=== PATIENT | female | born 1930 | race Caucasian/White ===

== ENCOUNTER 2016-12-10 16:11 | Emergency (ER) | payer OTHER ==
[~2016-12-10] VITALS: Ht 149.9 cm; Wt 45.4 kg
--- NOTE | ~2016-12-10 | EKG ---
[place] [address] [place] [address] ELECTROCARDIOGRAM REPORT Name: SEGUNDO SCHWARTZ I Room #: DEP Wm#: [id number] Admission: 12/10/16 Attend Phys: Discharge: 12/10/16 Date of : 34 Report #: [id number] THIS REPORT FOR: //name// [facility] ED Test Date: 2016-12-10 Test Time: 18:47:35 Pat Name: SEGUNDO SCHWARTZ Department: Room: Gender: F Student Services Director: lake : 1930 Requested By: Jimbo Acosta Order Number: [id number] MD: Leroy Candelario Measurements Intervals [place] Rate: 67 P: 30 IA: 254 QRS: -3 QRSD: 134 T: 55 QT: 400 QTc: 423 Interpretive Statements Sinus rhythm Atrial premature complex Prolonged IA interval Right bundle branch block Compared to ECG 10/29/2016 07:12:10 Atrial premature complex(es) now present Electronically Signed On 12-11-2016 8:27:31 CDT by Leroy Candelario [email or web address] <ELECTRONICALLY SIGNED> By: Leroy Candelario MD, [facility] 12/11/16 0827 46 46 Leroy Candelario MD, [facility] /EPI
[~2016-12-10 16:11] MED LIST: ADALAT CC60 MG PO; ADULT LOW DOSE81 MG PO; AFEDITAB CR30 MG PO; AMLODIPINE BESYL5 MG; AMLODIPINE BESYL5 MG PO; ASPIRIN EC81 M1; AUGMENTIN 875875 MG PO; AZITHROMYCIN PO; BACTRIM DS TAB1 EACH PO; CARVEDILOL25 MG PO; CIPRO250 M1 PO; CIPROFLOXACIN500 M1 PO; CLONIDINE HCL0.2 M2 PO; CLONIDINE HCL0.3 M2; DEMADEX20 MG PO; DIOVAN320 MG PO; FERREX 150 PLU1 EAC1 PO; FUROSEMIDE 40 M40 M1 PO; HYDRALAZINE 2525 MG PO; IRON325 PO; JANUVIA100 MG PO; KEFLEX250 MG PO; KEFLEX500 MG PO; LANTUS SUBQ; LASIX 20 MG TAB20 MG PO; LIPITOR40 MG PO; NEXIUM40 MG PO; NORCO 5-325 TA1 EACH PO; NORVASC5 MG PO; ONGLYZA2.5 MG PO; PERCOCET 5-3251 EACH PO; PHOSLO667 M1 PO; TRADJENTA5 MG PO; VICODIN 5-5001 EACH PO; VITAMIN D1000 UNI1 PO; ZOFRAN ODT4 MG PO; [UNRECOGNIZED DRUG - OTHER] PO; [UNRECOGNIZED DRUG - REMARK]
[2016-12-10] MEDS ORDERED: RENVELA800 MG PO (17:18)
[2016-12-10 19:14] LABS: HEMATOCRIT 37.1 % (37.0-47.0); HEMOGLOBIN 12.5 gm/dL (12.0-15.0); MCH 31.9 pg (26.0-34.0); MCHC 33.8 g/dL (28.0-37.0); MCV 94.3 fL (80.0-100.0); PLATELET COUNT 188 thou/uL (150-400); RBC 3.93 mil/uL (4.20-5.00); RDW 14.4 % (10.5-14.5); WBC 11.5 thou/uL (4.0-11.0)
[2016-12-10 19:15] LABS: MANUAL DIFF YES
[2016-12-10 19:18] LABS: CALCIUM 8.7 mg/dL (8.5-10.1); CREATININE 4.1 mg/dL (0.6-1.3); POTASSIUM 5.7 mmol/L (3.5-5.1)
[2016-12-10 19:22] LABS: APTT 22.9 Seconds (24.5-32.8); INR 1.1; PROTIME 11.1 Seconds (9.3-11.4)
[2016-12-10 19:23] LABS: ALBUMIN 3.2 g/dL (3.4-5.0); TOTAL BILIRUBIN 0.4 mg/dL (<0.1-1.0); TOTAL PROTEIN 6.2 g/dL (6.4-8.2)
[2016-12-10 20:49] LABS: ABSOLUTE NEUTROPHILS 8.4 thou/uL (1.4-8.2); ANISOCYTOSIS 1+; TOTAL CELL COUNT 100
== END 2016-12-10 21:16 | disposition short-term general hospital (02) ==
LOC: ER 16:11
PROVIDERS: Emergency Medicine
DX: S06.5X0A Traumatic subdural hemorrhage without loss of consciousness, initial encounter (principal); I13.2 Hypertensive heart and chronic kidney disease with heart failure and with stage 5 chronic kidney disease, or end stage renal disease; E11.22 Type 2 diabetes mellitus with diabetic chronic kidney disease; N18.6 End stage renal disease; I50.30 Unspecified diastolic (congestive) heart failure; Z99.2 Dependence on renal dialysis; G56.01 Carpal tunnel syndrome, right upper limb; K21.9 Gastro-esophageal reflux disease without esophagitis; E78.5 Hyperlipidemia, unspecified; Z90.89 Acquired absence of other organs; Z90.49 Acquired absence of other specified parts of digestive tract; Z88.5 Allergy status to narcotic agent; Z88.0 Allergy status to penicillin; W18.30XA Fall on same level, unspecified, initial encounter; Y93.89 Activity, other specified; Y92.010 Kitchen of single-family (private) house as the place of occurrence of the external cause; Y99.9 Unspecified external cause status

== ENCOUNTER 2017-01-06 16:21 | Inpatient (IN) | payer OTHER ==
[~2017-01-06] VITALS: Ht 149.9 cm; Wt 45.4 kg
--- NOTE | ~2017-01-06 | 2DMMODE ---
[facility] [address] [place] [address] 2 D/M-MODE ECHOCARDIOGRAM Name: SEGUNDO SCHWARTZ I Room #: 458-P ADM IN M.R.#: [id number] Admission: 01/06/17 Attend Phys: Theresa Fields Discharge: Date of : 34 Date of Service: 01/07/17 1432 Report #: [id number] THIS REPORT FOR: //name// APPROVED REPORT Study performed: 01/07/2017 11:28:28 EXAM: Comprehensive 2D, Doppler, and color-flow Echocardiogram Patient Location: Echo lab Room #: [facility] Blood Pressure: 96/36 mmHg HR: 53 bpm Rhythm: NSR Other Information Study Quality: Good Indications Elevated Troponin Hx: CHF, HTN,HLP,DM 2D Dimensions RVDd: 36.18 mm LVEF(%): 56.56 (>50%) IVSd: 13.24 (7-11mm) LVOT Diam: 19.25 (18-24mm) LVDd: 38.56 mm PWd: 13.08 (7-11mm) LVDs: 27.35 (25-40mm) Aortic Root: 30.70 mm Arellano's LVEF: 56.56 % Volumes Left Atrial Volume (Systole) Single Plane 4CH: 73.86 mL Single Plane 2CH: 62.24 mL LA ESV Index: 53.00 mL/m2 Aortic Valve AoV Peak Jameson.: 1.42 m/s AO Peak Gr.: 8.12 mmHg LV Max P.46 mmHg LV Max: 0.93 m/s Mitral Valve E/A Ratio: 1.1 MV Decel. Time: 260.44 ms [facility] [address] [place] [address] 2 D/M-MODE ECHOCARDIOGRAM Name: SEGUNDO SCHWARTZ I Room #: 458-P [facility]#: [id number] Admission: 01/06/17 Attend Phys: Theresa Fields Discharge: Date of : 34 Date of Service: 01/07/17 1432 Report #: [id number] MV E Max Jameson.: 1.00 m/s MV A Jameson.: 0.92 m/s MV PHT: 75.53 ms Pulmonary Valve PV Peak Jameson.: 1.11 m/s PV Peak Gr.: 4.94 mmHg Pulmonary Vein P Vein S: 37.3 m/s P Vein D: 42.1 m/s Tricuspid Valve TR Peak Jameson.: 2.06 m/s RAP Estimate: 5.00 mmHg TR Peak Gr.: 17.03 mmHg RVSP: 22.00 mmHg Left Ventricle The left ventricle is normal size. There is normal LV segmental wall motion. Mild concentric left ventricular hypertrophy. Left ventricular systolic function is normal. LVEF is 60-65%. Grade II - pseudonormal filling dynamics. Right Ventricle The right ventricle is normal size. The right ventricular systolic function is normal. Atria Left atrium is dilated. The right atrium size is normal. Aortic Valve Aortic valve is mildl calcified. Trace aortic regurgitation. There is no aortic valvular stenosis. Mitral Valve Mitral valve leaflets are mildly thickened. Mild mitral annular calcification. Mild to moderate mitral regurgitation. Tricuspid Valve The tricuspid valve is normal in structure. There is trace to mild tricuspid regurgitation. The right atrial pressure is estimated at 5 mmHg. Estimated PAP is 22mmHg. Pulmonic Valve The pulmonary valve is normal in structure. Trace pulmonic regurgitation. [employer] [facility] [address] [place] [address] 2 D/M-MODE ECHOCARDIOGRAM Name: SEGUNDO SCHWARTZ I Room #: 458-P [facility] IN M.R.#: [id number] Admission: 01/06/17 Attend Phys: Theresa Fields Discharge: Date of : 34 Date of Service: 01/07/17 1432 Report #: [id number] The aortic root is normal in size. Ascending aorta is not well visualized. IVC is normal in size and collapses >50% with inspiration. Pericardium A small ericardial effusion is present. <Conclusion> Left ventricular systolic function is normal. There is normal LV segmental wall motion. LVEF 60-65%. Grade II - pseudonormal filling dynamics. Left atrium is dilated. Aortic valve is mildl calcified, no aortic insuffiiciency or stenosis. Mitral valve leaflets are mildly thickened. Mild mitral annular calcification. There is trace to mild tricuspid regurgitation. The right atrial pressure is estimated at 5 mmHg. Estimated PAP is 22mmHg. A small pericardial effusion is present. <ELECTRONICALLY SIGNED> By: Leroy Candelario MD, [facility] 01/07/17 1432 1432 143 Leroy Candelario MD, [facility] /INF
--- NOTE | ~2017-01-06 | EKG ---
[address] [place] [address] ELECTROCARDIOGRAM REPORT Name: SEGUNDO SCHWARTZ I Room #: 458-P ADM IN M.R.#: [id number] Admission: 01/06/17 Attend Phys: Theresa Fields MD Discharge: Date of : 32 Report #: [id number] THIS REPORT FOR: //name// [facility] ED Test Date: 2017-01-06 Test Time: 17:10:23 Pat Name: SEGUNDO SCHWARTZ Department: Room: [facility] Gender: F Top Flavor Attendant: wale handley : 1930 Requested By: Manuela Friend Order Number: [id number] MD: Leroy Candelario Measurements Intervals [place] Rate: 76 P: 25 IN: 223 QRS: -15 QRSD: 139 T: 46 QT: 457 QTc: 514 Interpretive Statements Sinus rhythm Borderline prolonged IN interval Right bundle branch block Compared to ECG 12/10/2016 18:47:35 Atrial premature complex(es) no longer present Electronically Signed On 01-07-2017 9:23:06 CDT by Leroy Candelario [email or web address] <ELECTRONICALLY SIGNED> By: Leroy Candelario MD, [facility] 01/07/17 0923 1710 1710 Leroy Candelario MD, [facility] /EPI
--- NOTE | ~2017-01-06 | HC ---
[facility] [place] [address] CONSULTATION Name: SEGUNDO SCHWARTZ I Room #: 458-P [facility] IN M.R.#: [id number] Admission: 01/06/17 Attend Phys: Theresa Fields MD Discharge: 01/07/17 Date of : 32 Report #: [id number] THIS REPORT FOR: //name// CC: Robin Fields DATE OF SERVICE: 01/07/2017 INDICATION: Positive troponin. HISTORY OF PRESENT ILLNESS: This is a pleasant 86-year-old female who presented to [facility] with hypertension, weakness, and vomiting. She had completed dialysis yesterday morning and developed vomiting on the way home. She was found to have systolic blood pressure greater than 200 and brought to the ER for an evaluation. The patient had at least 4-5 episodes of vomiting. Presently, she denies having any episodes of chest pains or shortness of breath. Recently, she fell and apparently had a cerebral hemorrhage several weeks ago, admitted to [facility]. They report that surgery was not indicated and she has already followed up as an outpatient with a repeat CT of the head. PAST MEDICAL HISTORY: End-stage renal disease, on dialysis; hypertension and hypercholesterolemia. Recent admission for junctional rhythm associated with hyperkalemia. Echo from October 2016, reveals normal LV systolic function. ALLERGIES: CODEINE and PENICILLIN. MEDICATIONS: Include Januvia 100 mg daily, Lexapro, Procardia XL 30 mg daily, omeprazole once a day, atorvastatin 40 mg daily, aspirin 81 mg, Coreg 25 mg twice a day, and Demadex 20 mg daily. SOCIAL HISTORY: Negative for tobacco use. FAMILY HISTORY: Negative for premature CAD. REVIEW OF SYSTEMS: A full 10-point review of systems performed. Only the pertinent positives and negatives are described in the HPI. PHYSICAL EXAMINATION: VITAL SIGNS: Blood pressure is 150/80, heart rate is 76 beats per minute. GENERAL APPEARANCE: This is an elderly appearing female, in no acute respiratory distress. HEAD AND EYES: Normocephalic. Sclerae are anicteric. ENT: Oral mucosa moist. NECK: Supple. LUNGS: Clear to auscultation. [facility] [address] [place] [address] CONSULTATION Name: SEGUNDO SCHWARTZ I Room #: 458-P [facility] IN .R.#: [id number] Admission: 01/06/17 Attend Phys: Theresa Fields MD Discharge: 01/07/17 Date of : 32 Report #: [id number] CARDIAC: Regular rate and rhythm, S1, S2 positive. ABDOMEN: Soft. EXTREMITIES: No major joint deformities. No edema. ECG reveals sinus rhythm, right bundle branch block. LABORATORY VALUES: Peak troponin is 0.55. White count is 11.8 and hemoglobin is 12.4. Sodium is 133, BUN is 36, and creatinine is 3.6. ASSESSMENT AND PLAN: 1. Minimal troponin elevation of 0.55. Clinically stable with no symptoms of chest pains or shortness of breath. The significance is unclear with a history of renal disease. We will repeat an echo at this time. The plan is to continue with medical therapy. A low dose aspirin is indicated, if okay with neurology given her recent history of cerebral hemorrhage. 2. Hypertension, continue with medications. 3. End-stage renal disease, as per nephrology. 4. Hypercholesterolemia, continue with statin. 5. Cerebral hemorrhage, consider a neuro evaluation. Thank you for allowing me to participate in the care of your patient. <ELECTRONICALLY SIGNED> By: Mikey Syed MD 01/08/17 0804 0934 1250 Mikey Syed MD /nt
--- NOTE | ~2017-01-06 | HC ---
[facility] [address] [facility] [place] [address] CONSULTATION Name: SEGUNDO SCHWARTZ I Room #: 458-P [place] IN M.R.#: [id number] Admission: 01/06/17 Attend Phys: Theresa Fields MD Discharge: 01/07/17 Date of : 32 Report #: [id number] THIS REPORT FOR: //name// CC: Robin Fields REASON FOR PRESENTATION: Elevated blood pressure. REASON FOR CONSULTATION: End-stage renal disease. HISTORY OF PRESENT ILLNESS: This is a very well known patient to me. She is an 86-year-old with extensive past medical history including end-stage renal disease, maintained on dialysis every Thursday, Thursday and Thursday. His end-stage renal disease is due to diabetes mellitus and hypertension. She presented to the hospital after her had some difficulties with her blood pressure control. She had some weakness, no nausea or vomiting, no headache, no dizziness, no other symptoms to suggest an acute neurological event related to her blood pressure. Her talked with the people at the [facility] and she was asked to come to the emergency room for further evaluation where she was found to have an elevated blood pressure with systolic blood pressure of 200. She was admitted for further evaluation and management and I was consulted to manage her end-stage renal disease. PAST MEDICAL HISTORY: Numerous and extensive medical problems including the followin. End-stage renal disease. 2. Diabetes mellitus. 3. Hypertension. 4. Hyperlipidemia. 5. Status post tonsillectomy. 6. Appendectomy. 7. Colonoscopy. 8. Hysterectomy. 9. Status post left-sided AV fistula. 10. Benign brain tumor removed. 11. Carpal tunnel release. MEDICATIONS: 1. Sitagliptin: 2. Nifedipine. 3. Folic acid. 4. Sevelamer. 5. Carvedilol. 6. Aspirin. 7. Atorvastatin. FAMILY HISTORY: Significant for diabetes mellitus. [facility] [address] [place] [address] CONSULTATION Name: SEGUNDO SCHWARTZ I Room #: 458-P [place] IN [facility].#: [id number] Admission: 01/06/17 Attend Phys: Theresa Fields MD Discharge: 01/07/17 Date of : 32 Report #: [id number] ALLERGIES: PENICILLIN and CODEINE. SOCIAL HISTORY: She lives at the [facility]. No drug or alcohol abuse. REVIEW OF SYSTEMS: GENERAL: No fever or chills. CARDIOVASCULAR: No chest pain or palpitation. PULMONARY: No cough or hemoptysis. GASTROINTESTINAL: No nausea or vomiting. NEUROLOGICAL: Significant for weakness, but no headache, no dizziness. PHYSICAL EXAMINATION: GENERAL: She is alert, oriented, in no apparent distress. VITAL SIGNS: Temperature 36.9, blood pressure 148/57. HEAD AND NECK: No jugular venous distention, no bruit, no thyromegaly. CHEST: Clear to auscultation bilaterally. CARDIOVASCULAR: Regular with no rub detected. ABDOMEN: Soft, nontender with no hepatosplenomegaly. LOWER EXTREMITIES: No edema with intact peripheral pulses. LABORATORY DATA: Laboratory values reviewed. Hemoglobin 12.4. Chemistry showed hyponatremia. Troponins were mildly elevated. UA with some white blood cell clumps. Urine culture is still pending. ASSESSMENT, IMPRESSION AND PLAN: 1. End-stage renal disease. 2. Hypertension, out of control. 3. Diabetes mellitus. 4. Dialysis as usual every Thursday, and Thursday. 5. Replace potassium. 6. Cultures of the urine are still pending. 7. Stable from my side with acceptable blood pressure reading, okay to go home. After we get the cultures, to decide whether to treat her for a possibility . <ELECTRONICALLY SIGNED> By: Karina Howard MD 01/09/17 0921 0752 1153 Karina Howard MD /nt
[~2017-01-06 16:21] MED LIST changes: +RENVELA800 MG PO
[2017-01-06 16:43] VITALS: BP 201/59
[2017-01-06] MEDS ORDERED: OMEPRAZOLE40 MG PO (16:46)
[2017-01-06] MEDS ORDERED: PROCARDIA XL30 MG PO (16:46)
[2017-01-06] MEDS ORDERED: LEXAPRO 10 MG T10 M1 PO (16:46)
[2017-01-06] MEDS ORDERED: RENAGEL800 MG PO (16:47)
[2017-01-06 17:46] LABS: HEMATOCRIT 36.6 % (37.0-47.0); HEMOGLOBIN 12.4 gm/dL (12.0-15.0); MCH 30.9 pg (26.0-34.0); MCHC 33.9 g/dL (28.0-37.0); MCV 91.2 fL (80.0-100.0); PLATELET COUNT 219 thou/uL (150-400); RBC 4.01 mil/uL (4.20-5.00); RDW 13.1 % (10.5-14.5); WBC 11.8 thou/uL (4.0-11.0)
[2017-01-06 17:48] LABS: MANUAL DIFF YES
[2017-01-06 18:00] LABS: CALCIUM 8.7 mg/dL (8.5-10.1); CREATININE 2.8 mg/dL (0.6-1.0); POTASSIUM 3.5 mmol/L (3.5-5.1)
[2017-01-06 18:13] LABS: MAGNESIUM 1.6 mg/dL (1.8-2.4); TROPONIN-I 0.15 ng/mL (<0.04-0.07)
[2017-01-06 18:22] LABS: ICTOTEST (BILI CONFIRMATORY) Positive (Negative); URINE COLOR BROWN; URINE PROTEIN (DIPSTICK) ND (Negative); URINE SPECIFIC GRAVITY ND (1.003-1.035)
[2017-01-06 18:23] LABS: URINE BILIRUBIN ND (Negative); URINE BLOOD ND (Negative); URINE LEUKOCYTES-REFLEX ND (Negative); URINE UROBILINOGEN ND E.U./dl (0.2-1.0)
[2017-01-06 18:27] LABS: SSA (PROTEIN CONFIRMATORY) 4+ (APPROX. >= 500) mg/dL (Negative); URINE GLUCOSE-RANDOM* ND (Negative); URINE KETONES ND (Negative)
[2017-01-06 18:29] LABS: SQUAMOUS >10 Many /LPF (0-3)
[2017-01-06 18:31] LABS: WBC CLUMPS Occasional (None Seen)
[2017-01-06 18:32] LABS: COARSE GRANULAR CASTS 0-3 Few /LPF (None Seen); CRYSTALS None Seen /LPF (None Seen)
[2017-01-06 18:33] LABS: URINE RBC 0-2 Rare /HPF (0-2)
[2017-01-06 18:59] LABS: ABSOLUTE NEUTROPHILS 11.1 thou/uL (1.4-8.2); TOTAL CELL COUNT 100
[2017-01-06 19:56] VITALS: BP 156/66
[2017-01-06 20:15] VITALS: BP 175/47
[2017-01-06 21:00] VITALS: BP 161/48
[2017-01-06] MEDS ORDERED: LIDOCREAM5 GM TOP (21:16)
[2017-01-06] MEDS ORDERED: RENA-VITE TABL0.8 MG PO (21:21)
[2017-01-06] MEDS ORDERED: SENNA8.6 MG PO (21:22)
[2017-01-06] MEDS ORDERED: ACETAMINOPHEN325 M1 PO (21:23)
[2017-01-06] MEDS ORDERED: MIRALAX17 GM PO (21:24)
[2017-01-06 23:55] VITALS: BP 147/53
[2017-01-07 04:00] VITALS: BP 150/49
[2017-01-07 06:24] LABS: ALBUMIN 2.8 g/dL (3.4-5.0); ANION GAP 10 mmol/L (7-16); BUN 36 mg/dL (7-18); CALCIUM 8.5 mg/dL (8.5-10.1); CHLORIDE 95 mmol/L (98-107); CHOLESTEROL 128 mg/dL (<200); CO2 28 mmol/L (21-32); CREATININE 3.6 mg/dL (0.6-1.0); GLUCOSE 100 mg/dL (74-106); HDL CHOLESTEROL 68 mg/dL (>40); LDL CHOLESTEROL 42 mg/dL (<100); MAGNESIUM 2.3 mg/dL (1.8-2.4); PHOSPHORUS 2.5 mg/dL (2.5-4.9); POTASSIUM 3.3 mmol/L (3.5-5.1); SODIUM 133 mmol/L (136-145); TC:HDL 1.9 Ratio (Not establshd); TRIGLYCERIDE 94 mg/dL (<150); VLDL 19 mg/dL (<40)
[2017-01-07 07:47] VITALS: BP 148/57
[2017-01-07 11:29] VITALS: BP 96/36
[2017-01-07 15:16] VITALS: BP 96/36
== END 2017-01-07 16:51 | disposition home or self-care (01) | DRG 304 ==
LOC: ER 16:21 → EROBS 19:31 → 4W 19:31
PROVIDERS: Emergency Medicine; Nurse Practitioner
DX: I16.0 Hypertensive urgency (principal); N18.6 End stage renal disease; E43 Unspecified severe protein-calorie malnutrition; I16.1 Hypertensive emergency; N12 Tubulo-interstitial nephritis, not specified as acute or chronic; I13.2 Hypertensive heart and chronic kidney disease with heart failure and with stage 5 chronic kidney disease, or end stage renal disease; E11.22 Type 2 diabetes mellitus with diabetic chronic kidney disease; I45.10 Unspecified right bundle-branch block; E78.00 Pure hypercholesterolemia, unspecified; I50.9 Heart failure, unspecified; E78.5 Hyperlipidemia, unspecified; E83.42 Hypomagnesemia; Z88.6 Allergy status to analgesic agent; Z88.0 Allergy status to penicillin; Z90.710 Acquired absence of both cervix and uterus; Z99.2 Dependence on renal dialysis; Z82.49 Family history of ischemic heart disease and other diseases of the circulatory system; Z83.3 Family history of diabetes mellitus; Z87.891 Personal history of nicotine dependence
CPT/HCPCS: 10045

== ENCOUNTER → 2017-02-09 | Outpatient (CLI) | payer OTHER ==
[~2017-02-09] MED LIST changes: +ACETAMINOPHEN325 M1 PO; +LEXAPRO 10 MG T10 M1 PO; +LIDOCREAM5 GM TOP; +MIRALAX17 GM PO; +OMEPRAZOLE40 MG PO; +PROCARDIA XL30 MG PO; +RENA-VITE TABL0.8 MG PO; +RENAGEL800 MG PO; +SENNA8.6 MG PO
== END ==
LOC: NUC 11:14
DX: I10 Essential (primary) hypertension (principal)

== ENCOUNTER 2017-06-03 17:09 | Emergency (ER) | payer OTHER ==
[~2017-06-03] VITALS: Ht 147.3 cm; Wt 48.5 kg
[2017-06-03] MEDS ORDERED: ULTRAM 50MG TAB50 MG PO (19:01)
== END 2017-06-03 19:12 | disposition home or self-care (01) ==
LOC: ER 17:09
DX: S70.01XA Contusion of right hip, initial encounter (principal); I13.2 Hypertensive heart and chronic kidney disease with heart failure and with stage 5 chronic kidney disease, or end stage renal disease; E11.22 Type 2 diabetes mellitus with diabetic chronic kidney disease; N18.6 End stage renal disease; I50.9 Heart failure, unspecified; Z99.2 Dependence on renal dialysis; K21.9 Gastro-esophageal reflux disease without esophagitis; E78.5 Hyperlipidemia, unspecified; Z90.710 Acquired absence of both cervix and uterus; Z98.890 Other specified postprocedural states; Z88.0 Allergy status to penicillin; Z88.5 Allergy status to narcotic agent; W06.XXXA Fall from bed, initial encounter; Y93.89 Activity, other specified; Y92.89 Other specified places as the place of occurrence of the external cause; Y99.8 Other external cause status

== ENCOUNTER 2017-11-26 11:31 | Emergency (ER) | payer OTHER ==
[~2017-11-26] VITALS: Ht 134.6 cm; Wt 48.5 kg
[~2017-11-26 11:31] MED LIST changes: +ULTRAM 50MG TAB50 MG PO
[2017-11-26 13:08] LABS: ABSOLUTE NEUTROPHILS 3.6 thou/uL (1.4-8.2); BASOPHILS 0.9 % (0.0-2.0); HEMATOCRIT 37.5 % (37.0-47.0); HEMOGLOBIN 12.6 gm/dL (12.0-15.0); LYMPHOCYTES 20.9 % (24.0-44.0); MCHC 33.6 g/dL (28.0-37.0); MCV 95.2 fL (80.0-100.0); MONOCYTES 9.9 % (1.0-8.0); PLATELET COUNT 203 thou/uL (150-400); POLYS 67.3 % (36.0-66.0); RBC 3.94 mil/uL (4.20-5.00); RDW 13.3 % (10.5-14.5); WBC 5.4 thou/uL (4.0-11.0)
[2017-11-26 13:16] LABS: CALCIUM 9.4 mg/dL (8.5-10.1); CREATININE 2.3 mg/dL (0.6-1.0); POTASSIUM 3.8 mmol/L (3.5-5.1)
[2017-11-26 13:20] LABS: PHOSPHORUS 2.5 mg/dL (2.5-4.9)
[2017-11-26] MEDS ORDERED: VALIUM2 MG PO (14:29)
[2017-11-26 14:56] VITALS: BP 123/48
== END 2017-11-26 14:57 | disposition home or self-care (01) ==
LOC: ER 11:31
PROVIDERS: Emergency Medicine
DX: R25.1 Tremor, unspecified (principal); I12.0 Hypertensive chronic kidney disease with stage 5 chronic kidney disease or end stage renal disease; E11.22 Type 2 diabetes mellitus with diabetic chronic kidney disease; N18.6 End stage renal disease; Z99.2 Dependence on renal dialysis; I13.2 Hypertensive heart and chronic kidney disease with heart failure and with stage 5 chronic kidney disease, or end stage renal disease; I50.9 Heart failure, unspecified; K21.9 Gastro-esophageal reflux disease without esophagitis; E78.5 Hyperlipidemia, unspecified; Z88.0 Allergy status to penicillin; Z88.5 Allergy status to narcotic agent; Z87.891 Personal history of nicotine dependence

== ENCOUNTER 2018-11-01 07:56 | Emergency (ER) | payer OTHER ==
[~2018-11-01] VITALS: Ht 149.9 cm; Wt 49.9 kg
[~2018-11-01 07:56] MED LIST changes: +VALIUM2 MG PO
[2018-11-01 08:34] LABS: URINE BLOOD NEGATIVE (Negative); URINE CLARITY CLOUDY; URINE COLOR YELLOW; URINE GLUCOSE-RANDOM* NEGATIVE (Negative); URINE KETONES NEGATIVE (Negative); URINE LEUKOCYTES-REFLEX 2+ (Negative); URINE NITRITE-REFLEX NEGATIVE (Negative); URINE PROTEIN (DIPSTICK) 2+ (Negative); URINE UROBILINOGEN 0.2 E.U./dl (0.2-1.0)
[2018-11-01 08:36] LABS: ICTOTEST (BILI CONFIRMATORY) Negative (Negative); URINE BILIRUBIN NEGATIVE (Negative)
[2018-11-01 08:50] LABS: CASTS None Seen /LPF (None Seen); CRYSTALS None Seen /LPF (None Seen); SQUAMOUS >10 Many /LPF (0-3)
[2018-11-01 08:52] LABS: URINE WBC-REFLEX >25 Many /HPF (0-5)
[2018-11-01 08:53] LABS: BACTERIA-REFLEX >30 Many /HPF (None Seen); URINE RBC 0-2 Rare /HPF (0-2)
[2018-11-01 09:07] LABS: ABSOLUTE NEUTROPHILS 4.2 thou/uL (1.4-8.2); BASOPHILS 1.3 % (0.0-2.0); EOSINOPHILS 1.7 % (0.0-3.0); HEMATOCRIT 31.3 % (37.0-47.0); HEMOGLOBIN 10.3 gm/dL (12.0-15.0); LYMPHOCYTES 19.7 % (24.0-44.0); MCH 30.1 pg (26.0-34.0); MCHC 32.8 g/dL (28.0-37.0); MCV 91.8 fL (80.0-100.0); MONOCYTES 8.9 % (1.0-8.0); PLATELET COUNT 189 thou/uL (150-400); POLYS 68.4 % (36.0-66.0); RBC 3.41 mil/uL (4.20-5.00); RDW 14.3 % (10.5-14.5); WBC 6.1 thou/uL (4.0-11.0)
[2018-11-01 09:23] LABS: ALBUMIN 3.4 g/dL (3.4-5.0); CALCIUM 9.3 mg/dL (8.5-10.1); CREATININE 4.7 mg/dL (0.6-1.0); POTASSIUM 3.8 mmol/L (3.5-5.1); TOTAL BILIRUBIN 0.4 mg/dL (<0.1-1.0); TOTAL PROTEIN 6.8 g/dL (6.4-8.2)
[2018-11-01] MEDS ORDERED: KEFLEX500 M1 PO (09:24)
[2018-11-01 10:50] VITALS: BP 179/63
== END 2018-11-01 10:52 | disposition home or self-care (01) ==
LOC: ER 07:56
PROVIDERS: Emergency Medicine
DX: N39.0 Urinary tract infection, site not specified (principal); K21.9 Gastro-esophageal reflux disease without esophagitis; E78.5 Hyperlipidemia, unspecified; I13.2 Hypertensive heart and chronic kidney disease with heart failure and with stage 5 chronic kidney disease, or end stage renal disease; I50.9 Heart failure, unspecified; N18.6 End stage renal disease; E11.22 Type 2 diabetes mellitus with diabetic chronic kidney disease; Z99.2 Dependence on renal dialysis; Z87.891 Personal history of nicotine dependence; Z88.0 Allergy status to penicillin; Z88.5 Allergy status to narcotic agent

== ENCOUNTER 2018-11-17 11:44 | Inpatient (IN) | payer OTHER ==
[~2018-11-17] VITALS: Ht 149.9 cm; Wt 45.4 kg
--- NOTE | ~2018-11-17 | P ---
[facility] [place] [address] [place] [address] PROCEDURE REPORT Name: SEGUNDO SCHWARTZ Room #: 452-P ADM IN M.R.#: [id number] Admission: 11/17/18 ������������������ Attend Phys: Ang Christianson MD Discharge: ������������������ Date of : 34 Report #: [id number] THIS REPORT FOR: //name// CC: Robin Rosen DATE OF SERVICE: 11/18/2018 PROCEDURE PERFORMED: EGD with biopsies and snare polypectomy. She is a patient of Dr. Robin Riojas and Dr. Ang Christianson. INDICATION FOR PROCEDURE: This patient presented with nausea, vomiting of coffee-ground emesis and hematochezia as well as a history of peptic ulcer disease and increasing frequency of episodes of epistaxis over the last 2 months. She had epistaxis many years ago and had an artery cauterized in her nose, did not have any problems for several years and now it has returned. Informed consent for this procedure was obtained prior to the administration of any medication. The risks of the procedure, which include but are not limited to the following, bleeding, perforation, infection, complications of sedation and the possibility I could miss something were all explained to the patient and her and they have indicated their consent by signing. Anesthesia kindly provided deep sedation for this procedure. The Olympus upper videoscope was introduced through the upper esophageal sphincter and advanced under direct visualization to the third portion of the duodenum. Findings are noted on withdrawal of the scope. Third portion of the duodenum appears normal as far as what I can visualize. The second portion of the duodenum appears normal. The biliary ampulla; however, appears to have been sliced open and there is about a 1.5 cm opening into the biliary tree. I do not know if she has had a previous sphincterotomy or not or perhaps she has passed the stone that caused this tear in the ampulla leading to common bile duct. It is nonbleeding and does not appear to be a fresh lesion. In the distal duodenal bulb, there was a large pedunculated polyp with a broad base that was removed in toto with a hot snare and sent to pathology lab. I think that the size of this polyp was approximately 1.5 cm. There is a tiny bit of tissue at the base of this polypectomy site that may be edematous tissue; however, if the polyp is premalignant will need to go back and remove this area with the scope at a later date. This was a broad polypectomy base and I did not want to do any more cauterization in this area. I also suspect that this polyp [address] [address] PROCEDURE REPORT Name: SEGUNDO SCHWARTZ Room #: 452-P [facility] IN M.R.#: [id number] Admission: 11/17/18 ������������������ Attend Phys: Ang Christianson MD Discharge: ������������������ Date of : 32 Report #: [id number] was large enough to cause intermittent obstruction leading to nausea, vomiting and coffee-ground emesis. It has an ulcer approximately 1 cm in size on one side of the polyp. It is nonbleeding at this time. There were no visible vessels present in it. The duodenal bulb itself appears normal. Pylorus, normal mucosa. Antrum, erythematous mucosa. Body, normal mucosa. Cardia and fundus, normal mucosa. Retroflex view did not reveal any abnormalities except for a slight bloody mucousy bulb at the edge of the cardia that I removed with suction. It was just some drainage from the polyp that we took off in the duodenum and chased around in the stomach with a Aguayo net and it was completely removed with the suction and the underlying mucosa was normal. The scope was withdrawn into the esophagus. The Z-line is appropriately located at the top of the gastric folds and appears normal. The esophageal mucosa appears normal throughout its entirety. The scope was advanced down into the duodenum. Again, a hot snare was used to remove the polyp in toto and then it was brought up into the stomach and captured with a Aguayo net and pulled up with the scope through the patient's mouth and sent to pathology. Then, the Olympus upper videoscope was reintroduced through the upper esophageal sphincter and advanced again to the stomach. At this time, biopsies were obtained of the antrum x 2 for histopathology specifically to rule out H. pylori infection. Scope was then withdrawn and retroflexed and the proximal stomach appears normal. The scope was withdrawn to the esophagus, the Z-line is appropriately located once again and the esophageal mucosa appears normal throughout its entirety as the scope was withdrawn. The patient went to the recovery room in stable condition. She tolerated the procedure well. IMPRESSION: 1. A 1.5 cm ulcerated distal duodenal bulb polyp removed with hot snare and brought out with a Aguayo net as described above. Tiny bit of residual tissue may be still present at the base of the polypectomy site and if this is premalignant the patient will need to have another EGD to remove the rest of this area. I suspect this polyp was large enough and in the right location to cause intermittent obstructions and nausea and vomiting in her case as well as coffee-ground emesis. 2. Diffuse gastritis. Recommendations are to await the biopsies. We will start on proton pump inhibitors for now while the polypectomy site heals. We will proceed with colonoscopy at this time. We will await the ear, nose and throat consult regarding increasing frequency of epistaxis episodes. Thank you very much once again for allowing me to participate in her care, Dr. Riojas and Dr. Christianson. We will proceed with colonoscopy at this time. PROCEDURE PERFORMED: Colonoscopy. INDICATION FOR PROCEDURE: Informed consent for this procedure was obtained prior to the administration of any medication. The risks of the procedure, which include bleeding, perforation, infection, complications of sedation and [facility] [address] [place] [address] PROCEDURE REPORT Name: SEGUNDO SCHWARTZ Room #: 452-P ADM IN [facility].#: [id number] Admission: 11/17/18 ������������������ Attend Phys: Ang Christianson MD Discharge: ������������������ Date of : 32 Report #: [id number] the possibility I could miss something were explained to the patient. It was also explained that these were not the entire list of possible complications of this procedure. Her has indicated his consent and the patient has indicated her consent as well by signing. Anesthesia kindly provided deep sedation for this procedure. Digital rectal exam was performed and no abnormalities are palpated. Then, the Olympus colonoscope was introduced through the anal sphincter and advanced under direct visualization to the terminal ileum. Findings are noted on withdrawal of the scope. The terminal ileal mucosa appears normal. Cecum, normal mucosa. In the proximal ascending colon, there are several uncomplicated diverticula noted. These extend up to the mid ascending colon. In the mid ascending colon, there is a 2 cm pillow sign submucosal lesion that appears to be a lipoma. Hepatic flexure, normal mucosa. Transverse colon, normal mucosa until you get to the distal transverse colon by the splenic flexure. There was a 6 mm polyp removed in toto with a hot snare and sent to pathology lab from this area. Good hemostasis was noted after that polypectomy. Splenic flexure, normal mucosa. Descending colon, normal mucosa. Sigmoid colon, multiple uncomplicated diverticula are noted in the sigmoid colon. Rectum, normal mucosa. Retroflex view does reveal the presence of an internal hemorrhoid that may have been the source of her hematochezia. The scope was withdrawn. The patient went to the recovery area in stable condition. She tolerated the procedure well. IMPRESSION: 1. Multiple uncomplicated right and left-sided diverticula. 2. Lipoma suspected in the mid ascending colon size 2 cm as positive pillow sign. 3. Colon polyp, size 6 mm, removed with a hot snare from the distal transverse colon and recovered and sent to pathology lab. 4. Internal hemorrhoid. 5. A 4 mm sessile polyp removed in toto with the regular biopsy forceps from the mid ascending colon. Good hemostasis noted after that polypectomy. It was recovered and sent to pathology lab. RECOMMENDATIONS: To await the path report. We will start her on a high fiber diet. She will be on stool softeners as needed to consist of Colace two tabs daily. [address] [address] PROCEDURE REPORT Name: SEGUNDO SCHWARTZ Room #: 452-P [facility] IN M.R.#: [id number] Admission: 11/17/18 ������������������ Attend Phys: Ang Christianson MD Discharge: ������������������ Date of : 32 Report #: [id number] Thank you very much once again for allowing us to participate in her care. ��������������������������������������������� ���������������������������������������� By: ��������������������������������������������� 1304 0620 Tanisha Capellan, /nt
[~2018-11-17 11:44] MED LIST changes: +KEFLEX500 M1 PO
[2018-11-17 11:47] VITALS: BP 178/51
[2018-11-17 13:09] LABS: ABSOLUTE NEUTROPHILS 3.6 thou/uL (1.4-8.2); BASOPHILS 1.2 % (0.0-2.0); EOSINOPHILS 1.8 % (0.0-3.0); HEMATOCRIT 23.4 % (37.0-47.0); HEMOGLOBIN 7.8 gm/dL (12.0-15.0); LYMPHOCYTES 18.6 % (24.0-44.0); MCH 30.9 pg (26.0-34.0); MCHC 33.5 g/dL (28.0-37.0); MCV 92.4 fL (80.0-100.0); MONOCYTES 7.8 % (1.0-8.0); PLATELET COUNT 190 thou/uL (150-400); POLYS 70.6 % (36.0-66.0); RBC 2.53 mil/uL (4.20-5.00); RDW 14.6 % (10.5-14.5); WBC 5.2 thou/uL (4.0-11.0)
[2018-11-17 13:19] LABS: CALCIUM 9.1 mg/dL (8.5-10.1); CREATININE 3.6 mg/dL (0.6-1.0); POTASSIUM 4.3 mmol/L (3.5-5.1)
[2018-11-17 13:24] LABS: ALBUMIN 3.2 g/dL (3.4-5.0); DIRECT BILIRUBIN 0.1 mg/dL (<0.1-0.3); TOTAL BILIRUBIN 0.4 mg/dL (<0.1-1.0); TOTAL PROTEIN 6.3 g/dL (6.4-8.2)
[2018-11-17 13:27] LABS: APTT 23.1 Seconds (24.5-32.8); PROTIME 10.3 Seconds (9.3-11.4)
[2018-11-17 15:57] VITALS: BP 190/70
[2018-11-17 16:26] LABS: % SATURATION 29 % (20-39); IRON 60 ug/dL (50-170); TIBC 206 ug/dL (250-450)
[2018-11-17 17:19] VITALS: BP 153/42
[2018-11-17 17:28] VITALS: BP 153/42
[2018-11-17 18:21] VITALS: BP 153/42
[2018-11-17 18:26] LABS: URINE BILIRUBIN NEGATIVE (Negative); URINE BLOOD TRACE (Negative); URINE CLARITY CLEAR; URINE COLOR YELLOW; URINE GLUCOSE-RANDOM* NEGATIVE (Negative); URINE KETONES NEGATIVE (Negative); URINE LEUKOCYTES 2+ (Negative); URINE NITRITE NEGATIVE (Negative); URINE PROTEIN (DIPSTICK) 2+ (Negative); URINE UROBILINOGEN 0.2 E.U./dl (0.2-1.0)
[2018-11-17 18:26] LABS: HEMATOCRIT 23.6 % (37.0-47.0); HEMOGLOBIN 7.7 gm/dL (12.0-15.0)
[2018-11-17 18:38] LABS: BACTERIA >30 Many /HPF (None Seen); CASTS None Seen /LPF (None Seen); SQUAMOUS 0-3 Few /LPF (0-3); URINE RBC 3-10 Few /HPF (0-2)
[2018-11-17 18:39] LABS: AMORPHOUS PHOSPHATES Many /LPF (None Seen); WBC CLUMPS Few (None Seen)
[2018-11-18 04:01] VITALS: BP 196/59
--- NOTE | 2018-11-18 04:02 | NUR ---
Assumed care at 1845. Pt resting in bed. She has been NPO since midnight after having done a bowel prep. No episodes of nose bleed or GI bleed. Pt denies chest pain. She has IV or right AC and also a left upper arm fistula. Skin is intact. Shes incontinent both bowel and bladder. AOX4. No identified needs at the moment. Will continue to monitor.
[2018-11-18 04:35] VITALS: BP 174/59
[2018-11-18 07:22] VITALS: BP 179/53
[2018-11-18 10:53] LABS: HEMATOCRIT 24.2 % (37.0-47.0); HEMOGLOBIN 8.2 gm/dL (12.0-15.0); MCH 31.4 pg (26.0-34.0); MCHC 34.1 g/dL (28.0-37.0); MCV 92.1 fL (80.0-100.0); RBC 2.62 mil/uL (4.20-5.00)
[2018-11-18 11:11] LABS: POTASSIUM 4.5 mmol/L (3.5-5.1)
[2018-11-18 11:12] LABS: CREATININE 4.7 mg/dL (0.6-1.0)
[2018-11-18 11:16] LABS: ALBUMIN 3.3 g/dL (3.4-5.0); TOTAL BILIRUBIN 0.4 mg/dL (<0.1-1.0); TOTAL PROTEIN 6.2 g/dL (6.4-8.2)
[2018-11-18 13:36] VITALS: BP 182/68
--- NOTE | 2018-11-18 18:18 | NUR ---
NO NOSE BLEEDING TODAY. SPOKE WITH DR. SCHOFIELD AND HE SAID IF PATIENT NOT CURRENTLY BLEEDING HE CAN SEE HER IN HIS OFFICE NEXT WEEK. EGD AND COLONOSCOPY COMPLETED THIS AM. RETURNED TO ROOM AT 1330. DIALYSIS IN PROGRESS. FAMILY AT BEDSIDE. DENIED PAIN. SPOUSE IS WANTING TO TAKE PATIENT HOME THIS EVENING. HGB UP TO 8.2 THIS AFTERNOON. FALL PRECAUTIONS IN PLACE. VERY PLEASANT AND COOPERATIVE PATIENT.
[2018-11-18 20:13] VITALS: BP 153/54
[2018-11-18 22:03] LABS: HEMATOCRIT 22.6 % (37.0-47.0); HEMOGLOBIN 7.6 gm/dL (12.0-15.0)
[2018-11-19 04:40] VITALS: BP 150/53
[2018-11-19 06:09] LABS: HEMATOCRIT 22.6 % (37.0-47.0); HEMOGLOBIN 7.6 gm/dL (12.0-15.0); MCH 30.8 pg (26.0-34.0); MCHC 33.7 g/dL (28.0-37.0); MCV 91.4 fL (80.0-100.0); RBC 2.47 mil/uL (4.20-5.00); WBC 7.1 thou/uL (4.0-11.0)
[2018-11-19 06:21] LABS: CALCIUM 8.8 mg/dL (8.5-10.1); POTASSIUM 4.4 mmol/L (3.5-5.1)
[2018-11-19 06:45] LABS: CREATININE 2.6 mg/dL (0.6-1.0)
[2018-11-19 07:31] VITALS: BP 185/51
--- NOTE | 2018-11-19 15:03 | NUR ---
PT ADMITTED RELATED TO GI BLEED; NOSEBLEED. CM REVIEWED CHART AND SPOKE WITH CARE TEAM. CM MET WITH PT AND HER SPOUSE AT BEDSIDE THIS DAY. PT IS A&O X4. CM ROLE INTRODUCED. SPOUSE INDICATED THEY LIVE IN A HOUSE WITH 2 STEPS TO ENTER AND NO STEPS INSIDE. HE INDICATED THAT PT HAD A FWW AND A 4WW THAT SHE USES TO ASSIST WITH MOBILITY. THEY HAD HAD [facility] HH IN THE PAST. PT GOES TO [facility] T-R[facility] AND SPOUSE TRANSPORTS. CARE TEAM INDICATED THAT PT IS MEDICALLY STABLE TO DISCHARGE HOME THIS DAY. [facility] IS ABLE TO ACCEPT PT FOR HOME HEALTH SERVICES. UPDATED FLOW SHEETS TO BE SENT TO [facility]. NO OTHER CM INTERVENTION INDICATED AT THIS TIME. CASE CLOSED.
[2018-11-19 15:13] VITALS: BP 185/51
--- NOTE | 2018-11-19 15:27 | NUR ---
ASSUMED CARE AT 0700. ALERT X3, VSS, DENIES PAIN, INCONTINENT ON BOWEL AND BLADDER. UP WITH [facility] ASSIST. DIALYSIS LAST NIGHT WITHOUT COMPLICATIONS. PLANS TO DC HOME WITH HH TODAY. FAMILY BEDSIDE AT THIS TIME. CALLS APPROPRIATELY.
--- NOTE | 2018-11-22 07:27 | HC ---
[facility] [address] [place] [address] CONSULTATION Name: SEGUNDO SCHWARTZ Room #: 452-P [facility] IN M.R.#: [id number] Admission: 11/17/18 ������������������ Attend Phys: Ang Christianson MD Discharge: 11/19/18 ������������������ Date of : 34 Report #: [id number] THIS REPORT FOR: //name// CC: Robin hCristianson Rafiq Silas DATE OF SERVICE: 11/17/2018 TYPE OF REPORT: Nephrology consultation. REASON FOR CONSULTATION: End-stage renal disease, requiring hemodialysis. HISTORY OF PRESENT ILLNESS: This is an 88-year-old female who has end-stage renal disease, who is a chronic hemodialysis patient. She has been on dialysis for 3-4 years at this point. She has longstanding diabetes mellitus, which led to her end-stage renal disease. She also has a history of hypertension. She normally dialyzes on a Thursday, , Thursday dialysis schedule. She dialyzes at [facility], [facility]. She last dialyzed yesterday. She is due for dialysis tomorrow. She presented to the Emergency Room today with concern of her blood loss. There are mixed stories of probable epistaxis one or more episodes over the last couple of weeks, some potential bright red blood rectally noticed this morning, although in talking with the , it sounds like this was not definitively GI blood source. There was also concern of some potential hematemesis within the past couple of weeks. None of that has been completely documented and I would note that in the Emergency Room, she was guaiac negative. Nevertheless, she has dropped her hemoglobin. This is followed every 2 weeks at the dialysis unit. In the Emergency Room on November 01, her hemoglobin was 10.3. Today, it is down to 7.8. It was a bit lower than that actually at dialysis. When the saw the blood in the toilet this morning, he brought her in for evaluation in the Emergency Room. PAST MEDICAL HISTORY: Longstanding diabetes mellitus and hypertension. End-stage renal disease as noted above. She dialyzes using a left upper arm brachiocephalic fistula. She has had previous hospitalizations for hyperkalemia. She previously had difficult compliance with the dialysis regimen. She has longstanding dementia, which has not helped things. She has also had some prior heart failure and hyperlipidemia. MEDICATIONS: On admission include: Januvia 100 mg daily, Lexapro 10 mg daily, Nephro-Sung 1 daily, nifedipine 30 mg daily, omeprazole daily, sevelamer 800 mg t.i.d. with meals as a phosphate binder, atorvastatin 40 mg daily, aspirin 81 mg daily, carvedilol 25 mg b.i.d. and torsemide [address] [place] [address] CONSULTATION Name: SEGUNDO SCHWARTZ Room #: 452-P [facility] IN M.R.#: [id number] Admission: 11/17/18 ������������������ Attend Phys: Ang Christianson MD Discharge: 11/19/18 ������������������ Date of : 32 Report #: [id number] ALLERGIES: CODEINE and PENICILLIN. FAMILY HISTORY: Noncontributory. SOCIAL HISTORY: The patient is accompanied by her at this time. She is very demented and has difficulty communicating accurate answers on her own. REVIEW OF SYSTEMS: Seems to have tolerated dialysis well recently. Denies chest pain, palpitations. She had a potential hematemesis couple of weeks ago and also the epistaxis as noted above. Still makes urine occasionally. No hematuria is noted. No recent edema. No recent fevers, chills or sweats that we can tell. PHYSICAL EXAMINATION: GENERAL: Very pleasant but demented female seen in the Emergency Room. VITAL SIGNS: Blood pressure on last check 190/70, heart rate is 87, temperature 97.7 and oxygen saturation 98%. HEENT: Shows pupils are equal and reactive. Sclerae nonicteric. I see no nasal blood. I see no oral blood. No oral lesions. NECK: Supple without adenopathy, thyromegaly, JVD or bruit. CHEST: Clear bilaterally. CARDIOVASCULAR: Heart has a regular rate and rhythm. ABDOMEN: Has active bowel sounds. I cannot find organomegaly or masses. No tenderness on palpation. EXTREMITIES: Show no peripheral edema. She has a left upper arm fistula in place, which has good flow. Unfortunately, the blood pressure cuff had been placed across her fistula and I removed it. NEUROLOGICAL: She is demented as noted above. LABORATORY DATA: From today: Sodium 137, potassium 4.3, chloride 98, bicarbonate 32, BUN 16, creatinine 3.6 and glucose 112. Normal liver function tests. Total protein 6.3, albumin 3.2, iron saturation 29% (consistent with iron replacement at dialysis). Hemoglobin 7.8; hematocrit 23.4; white count 5.2 and platelets 190,000. ASSESSMENT: 1. End-stage renal disease. We will order dialysis for tomorrow. 2. Worsening anemia, etiology is a bit uncertain. She is on chronic iron replacement and also erythropoietin class supplementation at dialysis. We will monitor anemia regularly and this was a change. I would certainly support an acute loss. There is guaiac negative nature of her stool today would suggest it is possibly not a gastrointestinal source. At least, it is not actively bleeding. Nevertheless, hemorrhoids could certainly be a possibility. Epistaxis could be a possibility. All this will be evaluated. In the meantime, her iron levels are good. 3. Hypertension. Resume her usual meds. [facility] [address] [place] [address] CONSULTATION Name: SEGUNDO SCHWARTZ Room #: 452-P [facility] IN M.R.#: [id number] Admission: 11/17/18 ������������������ Attend Phys: nAg Christianson MD Discharge: 11/19/18 ������������������ Date of : 32 Report #: [id number] 4. Chronic dementia, was a problem. 5. Longstanding diabetes mellitus. PLAN: 1. Follow regular hemoglobin levels. 2. Colonoscopy scheduled for tomorrow. 3. We will do dialysis tomorrow after the colonoscopy. 4. Resume her other meds. 5. We will follow along the care of this pleasant patient. ��������������������������������������������� <ELECTRONICALLY SIGNED> ���������������������������������������� By: Rafiq Rosen MD ��������������������������������������������� 11/22/18 0727 1724 [id number] Rafiq Rosen MD /nt
--- NOTE | 2018-11-22 15:05 | PATH ---
[facility] [address] [place] [address] [place] [address] PATHOLOGY RPT PROCEDURE Name: SEGUNDO OVERTON Room #: 452-P DIS IN M.R.#: [id number] ������������������ Admission: 11/17/18 ������������������ Date of : 32 Discharge: 11/19/18 Report #: [id number] Path Case #: [id number] [facility] Accession Number: [id number] . 01 Material submitted: . PART A: POLYP AT DISTAL DUODENAL BULB PART B: GASTRIC BX PART C: POLYP AT DISTAL TRANSVERSE COLON PART D: POLYP AT DISTAL ASCENDING COLON . 01 Clinical history: . Pre-OP DX: Coffee-ground emesis, hematochezia Post-OP DX: Duodenal polyp, diverticulosis, colon polyps B. R/O H. pylori . 02 Diagnosis: A. Polyp, at distal duodenal bulb, endoscopic biopsy: - Polypoid fragment comprised of mature adipose tissue compatible with a lipoma associated with reparative changes. - Overlying mucosa showing focal fundic-type metaplasia as well as acute non-specific duodentitis. - Negative for dysplasia or malignancy. . B. Gastric mucosa, rule out H. pylori, endoscopic biopsy: - Mild reactive gastropathy. - Negative for intestinal metaplasia or atrophy. - Negative for Helicobacter pylori (properly controlled immunohistochemical stain performed). . C. Polyp, at distal transverse colon, endoscopic biopsy: - Tubular adenoma. - Negative for high grade dysplasia. . D. Polyp, at distal ascending colon, endoscopic biopsy: - Tubular adenoma. - Negative for high grade dysplasia. (IUV/db; 11/19/2018) LBQ/11/19/2018 . 02 Electronically signed: . Keila Mata MD, Pathologist NPI- [id number] . 01 Gross description: . A. Received in formalin labeled "Segundo Overton, polyp at the distal duodenal polyp," is a 1.8 x 1.3 x 1.4 cm polypoid piece of rodrigues soft tissue. The margin is inked and the [place] [address] PATHOLOGY RPT PROCEDURE Name: SEGUNDO OVERTON Room #: 452-P DIS IN M.R.#: [id number] ������������������ Admission: 11/17/18 ������������������ Date of : 32 Discharge: 11/19/18 Report #: [id number] Path Case #: [id number] to the margin and entirely submitted in cassette A1 through A3. . B. Received in formalin labeled "Segundo Overton, gastric BX, rule out H. pylori," are 2 segments of rodrigues soft tissue measuring 0.7 x 0.2 x 0.2 cm in aggregate dimensions and ranging from 0.3 to 0.4 cm in maximum dimension. The specimen is submitted entirely in cassette B1. . C. Received in formalin labeled "Segundo Overton, polyp at distal transverse colon," are 2 segments of rodrigues soft tissue measuring 0.9 x 0.3 x 0.3 cm in aggregate dimensions and ranging from 0.4 to 0.5 cm in maximum dimension. The specimen is submitted entirely in cassette C1. . D. Received in formalin labeled "Segundo Overton, polyp at distal ascending colon," is a single segment of rodrigues soft tissue measuring 0.5 cm in maximum dimension. The specimen is entirely submitted in cassette D1. (TSD; 11/18/2018) TOB/TOB . 02 Pathologist provided ICD-10: K29.80, D17.5, K31.9, D12.3, D12.4 . 02 CPT . 967424, 663634, 229472, 356837, [id number] Specimen Comment: A courtesy copy of this report has been sent to Specimen Comment: [phone], , . Specimen Comment: Report sent to ,DR VILLARREAL / DR PAVON Specimen Comment: A duplicate report has been generated due to demographic updates. Performed at: [address], [place], [place] [id number] MD Deep Pandey MD Phone: [phone] Performed at: [address] [id number] MD Keila Mata MD Phone: [phone]
== END 2018-11-19 15:51 | disposition home or self-care (01) | DRG 377 ==
LOC: ER 11:44 → 4W 13:58 → EROBS 13:58 → 4W 18:22 → ENTRNSPT 11-19 15:39 → EDTRNSPTSTS 11-19 15:41 → 4W 11-19 15:51
PROVIDERS: Internal Medicine Gastroenterology; Nurse Practitioner; ADMIT Hospitalist
PROC: 5A1D70Z Performance of Urinary Filtration, Intermittent, Less than 6 Hours Per Day (ICD-10-PCS; principal; 2018-11-18)
PROC: 0DB68ZX Excision of Stomach, Via Natural or Artificial Opening Endoscopic, Diagnostic (ICD-10-PCS; principal; 2018-11-18)
PROC: 0DBL8ZZ Excision of Transverse Colon, Via Natural or Artificial Opening Endoscopic (ICD-10-PCS; principal; 2018-11-18)
PROC: 0DB98ZZ Excision of Duodenum, Via Natural or Artificial Opening Endoscopic (ICD-10-PCS; principal; 2018-11-18)
PROC: 0DBK8ZZ Excision of Ascending Colon, Via Natural or Artificial Opening Endoscopic (ICD-10-PCS; principal; 2018-11-18)
DX: K26.4 Chronic or unspecified duodenal ulcer with hemorrhage (principal); N18.6 End stage renal disease; K55.032 Diffuse acute (reversible) ischemia of large intestine; I13.2 Hypertensive heart and chronic kidney disease with heart failure and with stage 5 chronic kidney disease, or end stage renal disease; K57.31 Diverticulosis of large intestine without perforation or abscess with bleeding; K29.71 Gastritis, unspecified, with bleeding; K21.9 Gastro-esophageal reflux disease without esophagitis; R04.0 Epistaxis; E78.5 Hyperlipidemia, unspecified; F03.90 Unspecified dementia, unspecified severity, without behavioral disturbance, psychotic disturbance, mood disturbance, and anxiety; D17.9 Benign lipomatous neoplasm, unspecified; K64.8 Other hemorrhoids; K63.5 Polyp of colon; F32.9 Major depressive disorder, single episode, unspecified; E11.22 Type 2 diabetes mellitus with diabetic chronic kidney disease; I50.9 Heart failure, unspecified; D63.8 Anemia in other chronic diseases classified elsewhere; Z90.710 Acquired absence of both cervix and uterus; Z90.49 Acquired absence of other specified parts of digestive tract; Z87.11 Personal history of peptic ulcer disease; Z82.49 Family history of ischemic heart disease and other diseases of the circulatory system; Z83.3 Family history of diabetes mellitus; Z88.6 Allergy status to analgesic agent; Z88.0 Allergy status to penicillin; Z87.891 Personal history of nicotine dependence
CPT/HCPCS: 10040; 10045; 32100; 62110; 62900

== ENCOUNTER 2018-12-14 12:23 | Emergency (ER) | payer OTHER ==
[~2018-12-14] VITALS: Ht 149.9 cm; Wt 45.0 kg
[2018-12-14 12:24] VITALS: BP 149/58
== END 2018-12-14 12:53 | disposition home or self-care (01) ==
LOC: ER 12:23
DX: T82.838A Hemorrhage due to vascular prosthetic devices, implants and grafts, initial encounter (principal); Y84.9 Medical procedure, unspecified as the cause of abnormal reaction of the patient, or of later complication, without mention of misadventure at the time of the procedure; E78.5 Hyperlipidemia, unspecified; I13.2 Hypertensive heart and chronic kidney disease with heart failure and with stage 5 chronic kidney disease, or end stage renal disease; E11.22 Type 2 diabetes mellitus with diabetic chronic kidney disease; N18.6 End stage renal disease; I50.9 Heart failure, unspecified; Z99.2 Dependence on renal dialysis; Z90.710 Acquired absence of both cervix and uterus; Z98.890 Other specified postprocedural states; Z87.891 Personal history of nicotine dependence; Z88.0 Allergy status to penicillin; Z88.5 Allergy status to narcotic agent; Z86.2 Personal history of diseases of the blood and blood-forming organs and certain disorders involving the immune mechanism; Y92.89 Other specified places as the place of occurrence of the external cause